=== PATIENT | male | born 1990 | race Caucasian/White ===

== ENCOUNTER 2018-02-15 11:25 | Emergency (ER) | payer SELFPAY ==
[2018-02-15 11:29] VITALS: BP 139/86; PULSE 88; TEMP 98.7; BMI 36.8
[2018-02-15] MEDS ORDERED: ACETAMINOPHEN 500 MG TABLET (FP) PO ONE (13:35)
[2018-02-15] MEDS ORDERED: ACETAMINOPHEN 500 MG TABLET (FP) ONE (13:46)
--- NOTE | 2018-02-15 13:55 | PDOC ---
History of Present Illness - General Chief Complaint: Headache Stated Complaint: HEADACHE Time Seen by Provider: 02/15/18 13:33 - History of Present Illness Initial Comments: 27-year-old male without comorbidities presents for evaluation of headache. He states last week he had an upper respiratory infection and clogged sinuses after he felt better his headache presented itself about 5 days ago. His headache is been intermittent minimally relieved with Advil and Tylenol usually worse at night. No associated nausea vomiting or visual changes no aura. 02/15/18 13:53 Past History - Past Medical History Allergies/Adverse Reactions: Allergies Allergy/AdvReac Type Severity Reaction Status Date / Time No Known Allergies Allergy Verified 02/15/18 11:29 Home Medications: Ambulatory Orders NK [No Known Home Medication] 09/13/15 - Suicide/Smoking/Psychosocial Hx Smoking History: Never smoked Have you smoked in the past 12 months: No Number of Cigarettes Smoked Daily: 2 Information on smoking cessation initiated: No 'Breaking Loose' booklet given: 09/13/15 Hx Alcohol Use: No Drug/Substance Use Hx: No Substance Use Type: None Review of Systems - Review of Systems Neurological: Yes: Headache All Other Systems: Reviewed and Negative *Physical Exam - Vital Signs Last Vital Signs Temp Pulse Resp BP Pulse Ox 98.7 F 88 16 139/86 98 02/15/18 11:27 02/15/18 11:27 02/15/18 11:27 02/15/18 11:27 02/15/18 11:27 - Physical Exam Comments: 02/15/18 14:02 HEAD: NC/AT EYES: Conjuntiva clear EOMI, PERRL Ears: Canals and TM's normal NOSE: No d/c THROAT: Moist mucous membrances, oral pharanx clear, uvula midline NECK: Supple without adenopathy CARDIAC: S1 S2 LUNGS: CTA Full and Equal breath sounds ABDOMEN: Soft NT ND MS: Full ROM in all joints without edema NEUROLOGIC: No gross sensory or motor deficits, NVID SKIN: Normal color and temperature no lesions or rashes Medical Decision Making - Medical Decision Making Headache resolved after a gram of Tylenol, I will have him follow-up with his primary care physician in one to 2 days for further evaluation and treatment options. 02/15/18 14:03 *DC/Admit/Observation/Transfer Diagnosis at time of Disposition: Headache - Discharge Dispostion Disposition: HOME Condition at time of disposition: Improved Decision to Admit order: No - Referrals Referrals: Girma Henry [Non Staff, Medical] - - Patient Instructions Printed Discharge Instructions: DI for Headache Additional Instructions: May continue to take Tylenol and Motrin as directed. Return to the emergency room should symptoms worsen or don't resolve. Follow-up with primary care physician I have recommended for you in 1-2 days for further evaluation and treatment options. - Post Discharge Activity
== END 2018-02-15 14:07 | disposition home or self-care (01) ==
LOC: JERFT 11:25
DX: R51 Headache (principal); Z72.0 Tobacco use
CPT/HCPCS: 99281-25